=== PATIENT | female | born 1950 ===

== ENCOUNTER → 2024-03-21 | Outpatient (CLI) | payer OTHER ==
[~2024-03-21] MED LIST: AMOCLA875 PO; MIRALAX17 GM PO; VISBIOME 112.51 EACH PO
[2024-03-21 18:47] LABS: BASOPHILS ABSOLUTE AUTO 0.04 K/mm3 (0.00-0.23); BASOPHILS PERCENT AUTO 0 % (0-2); EOSINOPHILS ABSOLUTE AUTO 0.16 K/mm3 (0.00-0.68); EOSINOPHILS PERCENT AUTO 1 % (0-6); Hematocrit 39.6 % (33.0-51.0); Hemoglobin 14.1 g/dL (11.5-16.0); IMMATURE GRAN ABSOLUTE AUTO 0.06 K/mm3 (0.00-0.10); IMMATURE GRAN PERCENT AUTO 0 % (0-1); LYMPHOCYTES ABSOLUTE AUTO 2.23 K/mm3 (0.84-5.20); LYMPHOCYTES PERCENT AUTO 16 % (21-46); MONOCYTES ABSOLUTE AUTO 1.14 K/mm3 (0.16-1.47); MONOCYTES PERCENT AUTO 8 % (4-13); Mean Corpuscular HGB Conc 35.6 g/dL (31.5-36.5); Mean Corpuscular Volume 82 fL (80-100); Mean Platelet Volume 8.6 fL (9.1-12.4); NEUTROPHILS PERCENT AUTO 75 % (41-73); Platelet Count 538 K/mm3 (150-400); RDW Coefficient Variation 11.9 % (11.7-14.2); RDW Standard Deviation 35.2 fL (35.1-46.3); Red Blood Cell Count 4.86 M/mm3 (3.80-5.20); White Blood Cell Count 14.33 K/mm3 (4.00-11.30)
[2024-03-21 19:05] LABS: Albumin, Blood 3.6 g/dL (3.4-5.0); Albumin/Globulin Ratio 0.7 (0.8-1.8); Bilirubin, Total 0.4 mg/dL (0.1-1.0); Bun/Creatinine Ratio 20.8 (12.0-20.0); Creatinine, Blood 3.32 mg/dL (0.40-1.00); Globulin, Blood 5.1 g/dL (2.2-4.0); Potassium, Blood 2.8 mmol/L (3.5-5.5); Total Protein, Blood 8.7 g/dL (6.4-8.2)
[2024-03-22 08:30] LABS: Adenovirus F 40/41 Not Detected (NOT DETECT); Astrovirus Not Detected (NOT DETECT); Campylobacter Sp Not Detected (NOT DETECT); Cryptosporidium Not Detected (NOT DETECT); Cyclospora Cayetanensis Not Detected (NOT DETECT); E. Coli O157 Not Detected (NOT DETECT); Entamoeba Histolytica Not Detected (NOT DETECT); Enteroaggregative E. coli-EAEC Not Detected (NOT DETECT); Enteropathogenic E. coli-EPEC Not Detected (NOT DETECT); Enterotoxigenic E. coli-ETEC Not Detected (NOT DETECT); Giardia Lamblia Not Detected (NOT DETECT); Norovirus GI/GII Detected (NOT DETECT); Plesiomonas Shigelloides Not Detected (NOT DETECT); Rotavirus A Not Detected (NOT DETECT); Salmonella Sp Not Detected (NOT DETECT); Sapovirus Not Detected (NOT DETECT); Shiga Toxin-prod E. coli-STEC Not Detected (NOT DETECT); Shigella/Enteroin E. coli-EIEC Not Detected (NOT DETECT); Vibrio Cholerae Not Detected (NOT DETECT); Vibrio Sp Not Detected (NOT DETECT); Yersinia Enterocolitica Not Detected (NOT DETECT)
== END ==
LOC: LAB 18:36 → LAB SHORT 18:36
DX: R19.7 Diarrhea, unspecified (principal); R10.9 Unspecified abdominal pain
CPT/HCPCS: 80053; 85025; 87507

== ENCOUNTER 2024-04-03 06:31 | Day surgery (SDC) | payer OTHER ==
[~2024-04-03] VITALS: Ht 162.6 cm; Wt 55.9 kg
[2024-04-03] MEDS ORDERED: propofoL 20 ML IV ONE (07:19)
[2024-04-03] MEDS ORDERED: FentaNYL Citrate 50 MCG/ML 2 ML Injection ONE (07:19)
[2024-04-03] MEDS ORDERED: Lidocaine HCl/Pf 1% 5 ML VIAL ONE (07:22)
[2024-04-03] MEDS ORDERED: Lactated Ringer's 1,000 ML IV ONE (07:32)
[2024-04-03] MEDS ORDERED: CeFAZolin Sodium 2,000 MG VIAL ONE (07:34)
[2024-04-03] MEDS ORDERED: Dexamethasone Sod Phos 10 MG/ML 1ML VIAL ONE (07:52)
[2024-04-03] MEDS ORDERED: Ondansetron HCl 2 MG / ML 2ML Vial ONE (07:52)
[2024-04-03] MEDS ORDERED: Phenylephrine HCl 100 MCG/ML-NS 10MLSYR (1MG/10ML) ONE (08:07)
[2024-04-03] MEDS ORDERED: Bupivacaine 0.5% HCl 5 MG/ML 30MLVIAL XX ONE (08:14)
--- NOTE | 2024-04-03 08:49 | NUR ---
04/03/24 0849 Milka Green PT ROUSES EASILY TO VOICE, DENIES PAIN/NAUSEA. VSS, ON RA. DRESSINGS X2 TO R UPPER CHEST C/D/I. NO VISIBLE SIGNS OF DISTRESS NOTED.
--- NOTE | 2024-04-03 09:00 | NUR ---
04/03/24 0900 Milka Green PT TRANSFERRED TO SDU. PT STILL DROWSY, BUT A&O. VSS, ON RA. PT CONTINUES TO DENY PAIN/NAUSEA. RADIOLOGY NOTIFIED. NO VISIBLE SIGNS OF DISTRESS NOTED.
[2024-04-03 09:03] VITALS: BP 99/56
== END 2024-04-03 09:42 | disposition home or self-care (01) ==
LOC: ORSCSDS 06:31
PROVIDERS: Surgery
PROC: 0JH60WZ Insertion of Totally Implantable Vascular Access Device into Chest Subcutaneous Tissue and Fascia, Open Approach (ICD-10-PCS; principal; 2024-04-03 08:00)
DX: C20 Malignant neoplasm of rectum (principal)
CPT/HCPCS: 77001; C1788; J0690; J1100; J1642; J2003; J2371; J2405; J2704; J3010; J7120

== ENCOUNTER 2024-04-12 17:22 | Emergency (ER) | payer OTHER ==
[~2024-04-12] VITALS: Ht 162.6 cm; Wt 52.2 kg
[2024-04-12 17:31] VITALS: BP 97/58
[2024-04-12] MEDS ORDERED: Lactated Ringer's 1,000 ML IV ONE (17:40)
[2024-04-12 18:31] LABS: Base Excess Venous 1.1 mmol/L; Bicarbonate Venous 25.2 mmol/L (24.0-30.0); pH Blood Venous 7.42 (7.34-7.37)
[2024-04-12 20:33] LABS: International Normalized Ratio 0.95; Prothrombin Time Results 10.2 Sec (9.7-11.5)
[2024-04-12 20:58] LABS: Source, Urine Clean Catch
[2024-04-12 21:01] LABS: Bilirubin, Urine Neg (Neg); Blood, Urine Neg (Neg); Glucose Qualitative, Urine Neg (Neg); Ketones, Urine Neg (Neg); Leukocyte Esterase, Urine Neg (Neg); Nitrite, Urine Neg (Neg); Protein, Urine Neg (Neg); Specific Gravity, Urine 1.015 (1.003-1.022); Urobilinogen, Urine NORM (Normal)
[2024-04-12 21:06] LABS: Appearance, Urine Clear (Clear); Color, Urine Pale Yellow (P-Yellow)
== END 2024-04-12 22:47 | disposition home or self-care (01) ==
LOC: ER 17:22
PROVIDERS: Student in an Organized Health Care Education/Training Program
DX: G93.40 Encephalopathy, unspecified (principal); Z91.011 Allergy to milk products; Z91.018 Allergy to other foods; Z79.899 Other long term (current) drug therapy; R93.3 Abnormal findings on diagnostic imaging of other parts of digestive tract; R50.9 Fever, unspecified; R10.9 Unspecified abdominal pain; R82.81 Pyuria
CPT/HCPCS: 36415; 70450; 71046; 74019; 80053; 81003; 82803; 83605; 83690; 83735; 84484; 85025; 85610; 85730; 87040; 87086; 93005; 93010; 96360-59; 99285-25; J7120

== ENCOUNTER → 2024-04-12 | Outpatient (CLI) | payer OTHER ==
[2024-04-12 14:51] LABS: BASOPHILS ABSOLUTE AUTO 0.04 K/mm3 (0.00-0.23); BASOPHILS PERCENT AUTO 0 % (0-2); EOSINOPHILS ABSOLUTE AUTO 0.14 K/mm3 (0.00-0.68); EOSINOPHILS PERCENT AUTO 1 % (0-6); Hemoglobin 11.4 g/dL (11.5-16.0); IMMATURE GRAN ABSOLUTE AUTO 0.11 K/mm3 (0.00-0.10); IMMATURE GRAN PERCENT AUTO 1 % (0-1); LYMPHOCYTES ABSOLUTE AUTO 1.73 K/mm3 (0.84-5.20); LYMPHOCYTES PERCENT AUTO 12 % (21-46); MONOCYTES ABSOLUTE AUTO 1.28 K/mm3 (0.16-1.47); MONOCYTES PERCENT AUTO 9 % (4-13); Mean Corpuscular HGB 28.9 pg (26.0-34.0); Mean Corpuscular HGB Conc 33.5 g/dL (31.5-36.5); Mean Corpuscular Volume 86 fL (80-100); Mean Platelet Volume 8.7 fL (9.1-12.4); NEUTROPHILS ABSOLUTE AUTO 10.92 K/mm3 (1.96-9.15); NEUTROPHILS PERCENT AUTO 77 % (41-73); Platelet Count 405 K/mm3 (150-400); RDW Coefficient Variation 13.1 % (11.7-14.2); RDW Standard Deviation 40.7 fL (35.1-46.3); Red Blood Cell Count 3.94 M/mm3 (3.80-5.20); White Blood Cell Count 14.22 K/mm3 (4.00-11.30)
[2024-04-12 15:02] LABS: Albumin, Blood 2.6 g/dL (3.4-5.0); Albumin/Globulin Ratio 0.5 (0.8-1.8); Bilirubin, Total 0.4 mg/dL (0.1-1.0); Bun/Creatinine Ratio 37.8 (12.0-20.0); Calcium, Blood 9.4 mg/dL (8.5-10.1); Creatinine, Blood 0.9 mg/dL (0.40-1.00); Globulin, Blood 5.1 g/dL (2.2-4.0); Magnesium, Blood 2.2 mg/dL (1.6-2.4); Potassium, Blood 3.7 mmol/L (3.5-5.5); Total Protein, Blood 7.7 g/dL (6.4-8.2)
== END | disposition home or self-care (01) ==
LOC: LAB SHORT 14:46 → LAB 14:46
PROVIDERS: Emergency Medicine
DX: R50.9 Fever, unspecified (principal); R10.9 Unspecified abdominal pain; R82.81 Pyuria
CPT/HCPCS: 80053; 83690; 83735; 85025; 87086

== ENCOUNTER 2024-04-16 20:41 | Inpatient (IN) | payer OTHER ==
[~2024-04-16] VITALS: Ht 162.6 cm; Wt 50.5 kg
[2024-04-16] MEDS ORDERED: HYDROmorphone HCl/Pf 1MG SYR IV ONE (21:25)
[2024-04-16] MEDS ORDERED: NS 1,000 ML IV SCH (21:25)
[2024-04-16 22:16] LABS: BASOPHILS ABSOLUTE AUTO 0.04 K/mm3 (0.00-0.23); BASOPHILS PERCENT AUTO 0 % (0-2); EOSINOPHILS ABSOLUTE AUTO 0.09 K/mm3 (0.00-0.68); EOSINOPHILS PERCENT AUTO 1 % (0-6); Hematocrit 31.2 % (33.0-51.0); Hemoglobin 10.9 g/dL (11.5-16.0); IMMATURE GRAN ABSOLUTE AUTO 0.08 K/mm3 (0.00-0.10); IMMATURE GRAN PERCENT AUTO 1 % (0-1); LYMPHOCYTES ABSOLUTE AUTO 1.27 K/mm3 (0.84-5.20); LYMPHOCYTES PERCENT AUTO 8 % (21-46); MONOCYTES ABSOLUTE AUTO 0.91 K/mm3 (0.16-1.47); MONOCYTES PERCENT AUTO 6 % (4-13); Mean Corpuscular HGB 29.5 pg (26.0-34.0); Mean Corpuscular HGB Conc 34.9 g/dL (31.5-36.5); Mean Corpuscular Volume 85 fL (80-100); Mean Platelet Volume 8.5 fL (9.1-12.4); NEUTROPHILS ABSOLUTE AUTO 12.76 K/mm3 (1.96-9.15); NEUTROPHILS PERCENT AUTO 84 % (41-73); Platelet Count 480 K/mm3 (150-400); RDW Coefficient Variation 12.7 % (11.7-14.2); RDW Standard Deviation 38.5 fL (35.1-46.3); Red Blood Cell Count 3.69 M/mm3 (3.80-5.20); White Blood Cell Count 15.15 K/mm3 (4.00-11.30)
[2024-04-16 22:43] LABS: Albumin, Blood 2.7 g/dL (3.4-5.0); Albumin/Globulin Ratio 0.5 (0.8-1.8); Bilirubin, Total 0.5 mg/dL (0.1-1.0); Bun/Creatinine Ratio 45.2 (12.0-20.0); Calcium, Blood 9.1 mg/dL (8.5-10.1); Creatinine, Blood 0.8 mg/dL (0.40-1.00); Potassium, Blood 2.9 mmol/L (3.5-5.5); Total Protein, Blood 7.7 g/dL (6.4-8.2)
[2024-04-16] MEDS ORDERED: Ondansetron HCl 2 MG / ML 2ML Vial IV PRN (22:45)
[2024-04-16] MEDS ORDERED: FLU VACC TS2024-25(6MOS UP)/PF 45 MCG/0.5 ML SYRINGE IM ONE (22:45)
[2024-04-16] MEDS ORDERED: FentaNYL Citrate 50 MCG/ML 2 ML Injection IV PRN (22:45)
[2024-04-16] MEDS ORDERED: NS 1,000 ML IV ONE (22:45)
[2024-04-17 00:59] VITALS: BP 124/66
[2024-04-17] MEDS ORDERED: HYDROmorphone HCl/Pf 1MG SYR IV PRN ×2 (01:40→13:00)
[2024-04-17 04:25] VITALS: BP 115/61
[2024-04-17] MEDS ORDERED: Potassium Chloride 20 MEQ in NS 90 ML IV SCH (04:30)
[2024-04-17 04:35] LABS: BASOPHILS ABSOLUTE AUTO 0.04 K/mm3 (0.00-0.23); BASOPHILS PERCENT AUTO 0 % (0-2); EOSINOPHILS ABSOLUTE AUTO 0.09 K/mm3 (0.00-0.68); EOSINOPHILS PERCENT AUTO 1 % (0-6); Hematocrit 32.2 % (33.0-51.0); Hemoglobin 11.4 g/dL (11.5-16.0); IMMATURE GRAN ABSOLUTE AUTO 0.13 K/mm3 (0.00-0.10); IMMATURE GRAN PERCENT AUTO 1 % (0-1); LYMPHOCYTES ABSOLUTE AUTO 1.76 K/mm3 (0.84-5.20); LYMPHOCYTES PERCENT AUTO 14 % (21-46); MONOCYTES ABSOLUTE AUTO 1.14 K/mm3 (0.16-1.47); MONOCYTES PERCENT AUTO 9 % (4-13); Mean Corpuscular HGB 29.5 pg (26.0-34.0); Mean Corpuscular HGB Conc 35.4 g/dL (31.5-36.5); Mean Corpuscular Volume 83 fL (80-100); NEUTROPHILS ABSOLUTE AUTO 9.37 K/mm3 (1.96-9.15); NEUTROPHILS PERCENT AUTO 75 % (41-73); RDW Coefficient Variation 12.8 % (11.7-14.2); RDW Standard Deviation 38.7 fL (35.1-46.3); Red Blood Cell Count 3.87 M/mm3 (3.80-5.20); White Blood Cell Count 12.53 K/mm3 (4.00-11.30)
[2024-04-17 04:59] LABS: Albumin, Blood 2.6 g/dL (3.4-5.0); Albumin/Globulin Ratio 0.6 (0.8-1.8); Bilirubin, Total 0.4 mg/dL (0.1-1.0); Bun/Creatinine Ratio 45.4 (12.0-20.0); Calcium, Blood 8.6 mg/dL (8.5-10.1); Creatinine, Blood 0.66 mg/dL (0.40-1.00); Globulin, Blood 4.6 g/dL (2.2-4.0); Magnesium, Blood 2.7 mg/dL (1.6-2.4); Potassium, Blood 2.5 mmol/L (3.5-5.5); Total Protein, Blood 7.2 g/dL (6.4-8.2)
--- NOTE | 2024-04-17 05:10 | NUR ---
SHIFT SUMMARY BENOIT WAS ALERT AND FULLY ORIENTED WHEN SHE ARRIVED FROM THE ED AT AROUND 0100. PT WITH L FEMUR FX. PT WAS VERY PAINFUL, DR GONZALEZ CONTACTED FOR PAIN MED CHANGES. PT IS INCONTINENT OF BOWEL D/T COLON CANCER. PT HAD COLONOSCOPY DAY PRIOR TO ADMIT. PEDAL PULSES INTACT. NO ACUTE EVENTS OR NOTED CHANGES AFTER ADMIT. ADMIT COMPLETED.
[2024-04-17 05:11] LABS: Mean Platelet Volume 8.8 fL (9.1-12.4); Platelet Count 373 K/mm3 (150-400)
[2024-04-17] MEDS ORDERED: HYDROmorphone HCl/Pf 1MG SYR IV ONE (05:40)
[2024-04-17] MEDS ORDERED: Potassium Chloride 20 MEQ TabCR PO ONE (07:00)
[2024-04-17 07:28] VITALS: BP 107/66
[2024-04-17] MEDS ORDERED: Potassium Chloride 20 MEQ/15 ML UDC PO ONE (08:00)
[2024-04-17 14:44] LABS: Albumin, Blood 2.6 g/dL (3.4-5.0); Albumin/Globulin Ratio 0.5 (0.8-1.8); Bilirubin, Total 0.5 mg/dL (0.1-1.0); Creatinine, Blood 0.71 mg/dL (0.40-1.00); Globulin, Blood 4.9 g/dL (2.2-4.0); Potassium, Blood 3.4 mmol/L (3.5-5.5); Total Protein, Blood 7.5 g/dL (6.4-8.2)
[2024-04-17] MEDS ORDERED: OxyCODONE HCL 5 MG TAB PO PRN (15:35)
[2024-04-17 15:42] VITALS: BP 111/61
[2024-04-17] MEDS ORDERED: Menthol/Zinc Oxide Ointment 1 APPLIC/113 GM Tube TOP PRN (17:55)
[2024-04-17] MEDS ORDERED: Potassium Chloride 20 MEQ TabCR PO SCH (18:00)
--- NOTE | 2024-04-17 18:45 | NUR ---
SHIFT SUMMARY PT IS A/O X4, 2 ASST TO REPOSITION IN BED. L LEG EXTERNALLY ROTATED, CAP REFILL IN L TOES 2 SECS, PT ABLE TO WIGGLE TOES BILATERALLY. PT MEDICATED FOR PAIN PER EMAR, O2 SATS DROPPED FROM >92% TO 82% ON RA AFTER RECIEVING PAIN MEDICATION THIS MORNING. 2LNC PLACED AND O2 SATS RETURNED TO >92%. PT AROUSABLE BUT DROWSY. PT REMAINS ON 2L NC THROUGHOUT SHIFT TO MAINTAIN 02 SATS >92% W/ NARCOTIC USE. PT HAS MUSCLE CRAMPS AT TIMES THAT ARE RELIEVED W/ REPOSITIONING. PT HAS BEEN PLEASANT AND IN GOOD SPIRITS MOST OF SHIFT, CURRENTLY IS RESTING IN ROOM W/ SPOUSE AT BEDSIDE AND REPORTS PAIN IS TOLERABLE. ROSENBERG IN PLACE DRAINING YELLOW URINE DUE TO RETENTION PER DR. GOETZ. PT IS TOLERATING REG DIET AND PO FLUIDS. DRY ATTENDS IN PLACE AT THIS TIME, PT CHANGED AND REPOSITIONED THROUGHOUT SHIFT. REFUSING PAS. REPORT TO NOC NURSE, CALL LIGHT IN REACH.
[2024-04-17 20:05] VITALS: BP 118/63
[2024-04-18] VITALS (15 sets, daily range): BP systolic 115–137; BP diastolic 60–75
[2024-04-18] MEDS ORDERED: NS 1,000 ML IV SCH (01:25)
[2024-04-18 04:45] LABS: BASOPHILS ABSOLUTE AUTO 0.04 K/mm3 (0.00-0.23); BASOPHILS PERCENT AUTO 0 % (0-2); EOSINOPHILS ABSOLUTE AUTO 0.13 K/mm3 (0.00-0.68); EOSINOPHILS PERCENT AUTO 1 % (0-6); Hemoglobin 10.4 g/dL (11.5-16.0); IMMATURE GRAN ABSOLUTE AUTO 0.09 K/mm3 (0.00-0.10); IMMATURE GRAN PERCENT AUTO 1 % (0-1); LYMPHOCYTES ABSOLUTE AUTO 1.27 K/mm3 (0.84-5.20); LYMPHOCYTES PERCENT AUTO 10 % (21-46); MONOCYTES ABSOLUTE AUTO 0.84 K/mm3 (0.16-1.47); MONOCYTES PERCENT AUTO 7 % (4-13); Mean Corpuscular HGB 29.3 pg (26.0-34.0); Mean Corpuscular HGB Conc 33.5 g/dL (31.5-36.5); Mean Corpuscular Volume 87 fL (80-100); Mean Platelet Volume 8.7 fL (9.1-12.4); NEUTROPHILS PERCENT AUTO 82 % (41-73); Platelet Count 459 K/mm3 (150-400); RDW Coefficient Variation 13.1 % (11.7-14.2); RDW Standard Deviation 41.7 fL (35.1-46.3); Red Blood Cell Count 3.55 M/mm3 (3.80-5.20); White Blood Cell Count 12.77 K/mm3 (4.00-11.30)
[2024-04-18 05:06] LABS: Albumin, Blood 2.6 g/dL (3.4-5.0); Albumin/Globulin Ratio 0.6 (0.8-1.8); Bilirubin, Total 0.6 mg/dL (0.1-1.0); Bun/Creatinine Ratio 33.2 (12.0-20.0); Calcium, Blood 9.2 mg/dL (8.5-10.1); Creatinine, Blood 0.6 mg/dL (0.40-1.00); Globulin, Blood 4.7 g/dL (2.2-4.0); Potassium, Blood 3.6 mmol/L (3.5-5.5); Total Protein, Blood 7.3 g/dL (6.4-8.2)
--- NOTE | 2024-04-18 06:55 | NUR ---
PT ALERT AND ORIENTED. ANSWERS QUESTIONS APPROP. COOPERATIVE WITH CARE. ROSENBERG WITH LOW OUTPUT OF DARK YELLOW URINE. CALLED HOSPITALIST FOR ORDER OF IVF. NS AT 75ML/HR STARTED. SCHEDULED FOR SURGERY IN AM. NPO AFTER MN. SLX2 PATENT AND FLUSHED. LT AC SL INFILTRATED AT O332. IVF INFUSING IN SL RT AC, PT PULLED IT OUT. NEW IV 20G PLACED RT WRIST IVF INFUSING. MEDICATING PATIENT FOR PAIN WITH DILAUDID 0.5MG IVP. PATIENT NEEDED ANOTHER DOSE 1.5 HRS. ABOUT MN PATIENT HAD BEEN CRYING AND MOANING ABOUT PAIN IN HER LT FOOT/ANKLE. RUBBED FEET WITH LOTION TO SEE IF THET HELPED. THEN PLACED ICE PACK TO LLE. CALLED HOSP AND HE ORDERED A PORTABLE X-RAY OF LLE FROM THE KNEE DOWN. 0227 MEDICATED PT WITH DIILAUDIOD 1MG IVP. DAYSHIFT RN SAID PATIENT SATS DROPPED WITH IMG. ABOUT 8-10 POST IVP PATIENT STOPPED CRYING /MOANING AND OPENED HER EYES. XRAY DONE IN ROOM. PT SLEEPING POST XRAY. RESPIRATIONS EVEN AND UNLABORED. NPO PAST MN FOR LAST TWO NIGHTS. REPORT GIVEN TO ONCOMING RN THAT ASSUMED CARE OF MARILYN.
[2024-04-18] MEDS ORDERED: Potassium Chl 20MEQ/Water100ML 100 ML IV ONE (11:00)
[2024-04-18] MEDS ORDERED: Lactated Ringer's 1,000 ML IV SCH (12:20)
[2024-04-18] MEDS ORDERED: Bupivacaine 0.5% W/EPI 1:200000 SDV 30 ML Vial ONE (12:23)
[2024-04-18] MEDS ORDERED: CeFAZolin Sodium 2,000 MG in NS 100 ML IV SCH ×2 (12:40→21:00)
[2024-04-18] MEDS ORDERED: Tranexamic Acid 100 ML IV SCH (12:44)
[2024-04-18] MEDS ORDERED: propofoL 20 ML IV ONE (13:03)
[2024-04-18] MEDS ORDERED: FentaNYL Citrate 50 MCG/ML 2 ML Injection ONE ×2 (13:03→14:26)
[2024-04-18] MEDS ORDERED: FentaNYL Citrate 50 MCG/ML 2 ML Injection IV PRN ×3 (13:30→13:35)
[2024-04-18] MEDS ORDERED: Ondansetron HCl 2 MG / ML 2ML Vial IV PRN (13:35)
[2024-04-18] MEDS ORDERED: Ondansetron HCl 2 MG / ML 2ML Vial ONE (13:37)
[2024-04-18] MEDS ORDERED: Lidocaine HCl 2% 20 ML MDV ONE (13:37)
[2024-04-18] MEDS ORDERED: Dexamethasone Sod Phos 10 MG/ML 1ML VIAL ONE (13:37)
[2024-04-18] MEDS ORDERED: HYDROmorphone HCl 0.5 MG/0.5 ML SYR IV PRN (13:40)
--- NOTE | 2024-04-18 16:31 | NUR ---
POST OP: REPORT RECEIVED FROM SPIRAL RUNNER. PT TO UNIT AT ABOUT 1445. PT ORIENTED, DROWSY AND AWAKENS TO VOICE. VSS. ROSENBERG DRAINING. SURGICAL SITES WNL. SENSATION INTACT TO L LEG. PT REPORTS PAIN4/10, MEDICATED PER EMAR. TELE VERIFIED. SR 97. PT GIVEN CALL LIGHT AND INSTRUCTED TO CALL STAFF IF NEEDS OOB. PT VERBALIZED UNDERSTANDING. PT SPOUSE AT BEDSIDE.
--- NOTE | 2024-04-18 18:00 | NUR ---
SUMMARY: NO ACUTE CHANGE SINCE POST OP. PT HAS HAD MINIMAL PAIN, SURGICAL SITES WNL. PT ABLE TO REPOSTION EASIER IN BED, SAT UP FOR DINNER. VSS, TELE WNL. PT USING CALL LIGHT. PLAN TO AMBULATE TOLERATED AFTER DINNER.
[2024-04-18] MEDS ORDERED: Multivitamins 1 Tab PO SCH (18:20)
[2024-04-18] MEDS ORDERED: Thiamine HCl 100 MG Tab PO SCH (18:20)
[2024-04-18] MEDS ORDERED: Magnesium Hydroxide Conc 10 ML UDC PO PRN (20:30)
[2024-04-18] MEDS ORDERED: Bisacodyl 10 MG Supp PR PRN (20:35)
[2024-04-18] MEDS ORDERED: Sennosides 8.6 MG Tab PO SCH (21:00)
[2024-04-18] MEDS ORDERED: Docusate Sodium 100 MG Cap PO SCH (21:00)
[2024-04-19] VITALS (7 sets, daily range): BP systolic 102–129; BP diastolic 63–71
[2024-04-19 05:13] LABS: BASOPHILS ABSOLUTE AUTO 0.02 K/mm3 (0.00-0.23); BASOPHILS PERCENT AUTO 0 % (0-2); EOSINOPHILS ABSOLUTE AUTO 0.01 K/mm3 (0.00-0.68); EOSINOPHILS PERCENT AUTO 0 % (0-6); Hemoglobin 9.1 g/dL (11.5-16.0); IMMATURE GRAN PERCENT AUTO 1 % (0-1); LYMPHOCYTES ABSOLUTE AUTO 0.99 K/mm3 (0.84-5.20); LYMPHOCYTES PERCENT AUTO 8 % (21-46); MONOCYTES ABSOLUTE AUTO 0.42 K/mm3 (0.16-1.47); MONOCYTES PERCENT AUTO 3 % (4-13); Mean Corpuscular HGB 29.1 pg (26.0-34.0); Mean Corpuscular HGB Conc 32.5 g/dL (31.5-36.5); Mean Corpuscular Volume 90 fL (80-100); Mean Platelet Volume 8.7 fL (9.1-12.4); NEUTROPHILS ABSOLUTE AUTO 11.13 K/mm3 (1.96-9.15); NEUTROPHILS PERCENT AUTO 88 % (41-73); Platelet Count 399 K/mm3 (150-400); RDW Coefficient Variation 12.9 % (11.7-14.2); RDW Standard Deviation 41.9 fL (35.1-46.3); Red Blood Cell Count 3.13 M/mm3 (3.80-5.20); White Blood Cell Count 12.67 K/mm3 (4.00-11.30)
[2024-04-19 05:41] LABS: Albumin, Blood 2.2 g/dL (3.4-5.0); Albumin/Globulin Ratio 0.5 (0.8-1.8); Bilirubin, Total 0.3 mg/dL (0.1-1.0); Bun/Creatinine Ratio 25.9 (12.0-20.0); Calcium, Blood 8.8 mg/dL (8.5-10.1); Creatinine, Blood 0.58 mg/dL (0.40-1.00); Globulin, Blood 4.3 g/dL (2.2-4.0); Magnesium, Blood 2.5 mg/dL (1.6-2.4); Phosphorus, Blood 3.7 mg/dL (2.5-4.9); Potassium, Blood 3.1 mmol/L (3.5-5.5); Total Protein, Blood 6.5 g/dL (6.4-8.2)
--- NOTE | 2024-04-19 06:42 | NUR ---
SHIFT SUMMARY POD 1 LEFT GAMMA HIP. DRESSING TO LEFT HIP CDI. ICE APPLIED CHAPITO. PAIN MANAGED PER EMAR. IVF AND ABD INFUSED PER ORDERS. ENCOURAGED PO INTAKE, PT DENIES N/V. APPEARS TO HAVE SLEPT T/O MOST OF SHIFT. CLEAR LIQUID STOOLS CONT, ATTENDS CHANGED AND REPOSITIONING PRN. A/OX3-4 WITH VSS. ABLE TO MAKE NEEDS KNOWN. ROSENBERG PATENT TO GRAVITY DRAIN PER ORDERS. AWAITING POST-OP OOB, PLAN TO WORK WITH THERAPY TODAY. WILL GIVE REPORT TO ONCOMING RN
--- NOTE | 2024-04-19 16:42 | NUR ---
SHIFT SUMMARY THIS RN ASSUMED CARE AT APPROX 0715. PATIENT ALERT AND ORIENTED X3-4. CAN BE A BIT FORGETFUL - EASILY REDIRECTABLE. VSS. SBP 100s-120s. MAP >65. DENIES CHEST PAIN, PRESSURE. TELEMETRY SHOWING SINUS 80s-90s PER FINANCIAL ACCOUNTING MANAGER - NO EVENTS REPORTED. TITRATED FROM 2L VIA NC TO ROOM AIR, SATs >90%. RR SHALLOW - ENCOURAGING TO COUGH AND DEEP BREATH. POD 1 L HIP NAILING - X3 GAUZE AND TEGADERM SITES C/D/I. MANAGING PAIN PER EMAR. AMBULATING WITH 1-2P ASSIST FWW GB. PHYSICAL THERAPY EVAL COMPLETED THIS MORNING - LIMITED SENSATION AND MOBILITY TO L ANKLE NOTED BY THERAPY. MD MCFARLANE AWARE. UP IN CHAIR MAJORITY OF THE DAY. ROSENBERG CATHETER REMOVED - VOIDING SINCE REMOVAL. EPISODES OF CLEAR JELLY LIKE STOOL - INCONTINENT AT TIMES. PATIENT STATES BASELINE SINCE SCOPE 04/15/24. TOLERATING PO INTAKE. NO BM. CALL LIGHT IN REACH.
[2024-04-20 05:48] LABS: BASOPHILS ABSOLUTE AUTO 0.04 K/mm3 (0.00-0.23); BASOPHILS PERCENT AUTO 0 % (0-2); EOSINOPHILS ABSOLUTE AUTO 0.13 K/mm3 (0.00-0.68); EOSINOPHILS PERCENT AUTO 1 % (0-6); Hematocrit 27.3 % (33.0-51.0); Hemoglobin 8.7 g/dL (11.5-16.0); IMMATURE GRAN ABSOLUTE AUTO 0.08 K/mm3 (0.00-0.10); IMMATURE GRAN PERCENT AUTO 1 % (0-1); LYMPHOCYTES ABSOLUTE AUTO 2.13 K/mm3 (0.84-5.20); LYMPHOCYTES PERCENT AUTO 22 % (21-46); MONOCYTES ABSOLUTE AUTO 0.76 K/mm3 (0.16-1.47); MONOCYTES PERCENT AUTO 8 % (4-13); Mean Corpuscular HGB 28.6 pg (26.0-34.0); Mean Corpuscular HGB Conc 31.9 g/dL (31.5-36.5); Mean Corpuscular Volume 90 fL (80-100); Mean Platelet Volume 8.5 fL (9.1-12.4); NEUTROPHILS ABSOLUTE AUTO 6.39 K/mm3 (1.96-9.15); NEUTROPHILS PERCENT AUTO 67 % (41-73); Platelet Count 377 K/mm3 (150-400); RDW Coefficient Variation 13.1 % (11.7-14.2); RDW Standard Deviation 43.1 fL (35.1-46.3); Red Blood Cell Count 3.04 M/mm3 (3.80-5.20); White Blood Cell Count 9.53 K/mm3 (4.00-11.30)
[2024-04-20 06:03] VITALS: BP 134/76
[2024-04-20 06:20] LABS: Albumin, Blood 2.1 g/dL (3.4-5.0); Albumin/Globulin Ratio 0.5 (0.8-1.8); Bilirubin, Total 0.4 mg/dL (0.1-1.0); Bun/Creatinine Ratio 40.2 (12.0-20.0); Calcium, Blood 8.8 mg/dL (8.5-10.1); Creatinine, Blood 0.65 mg/dL (0.40-1.00); Globulin, Blood 4.1 g/dL (2.2-4.0); Magnesium, Blood 2.2 mg/dL (1.6-2.4); Phosphorus, Blood 3.2 mg/dL (2.5-4.9); Potassium, Blood 3.2 mmol/L (3.5-5.5); Total Protein, Blood 6.2 g/dL (6.4-8.2)
[2024-04-20 07:19] VITALS: BP 100/55
--- NOTE | 2024-04-20 07:31 | NUR ---
NURSES NOTES; PATIENT SLEPT IN LONG INTERVAL MEDICATED FOR PAIN 4 TIMES. TELE SR 79 O2/NC/ 2L ALL NIGHT, UP TO BSC SEVERAL TIMES.
[2024-04-20] MEDS ORDERED: Polyethylene Glycol 3350 17 gm PO SCH (09:00)
--- NOTE | 2024-04-20 10:53 | NUR ---
PAIN PATIENT REPORTING 5/10 PAIN IN L HIP. Q6H 5MG PO OXYCODONE ADMINISTERED PER EMAR THIS MORNING. MD EARL CONTACTED - RECEIVED ORDER FOR 650MG PO TYLENOL Q6H PRN.
[2024-04-20] MEDS ORDERED: Acetaminophen 325 MG TABLET PO PRN (10:55)
--- NOTE | 2024-04-20 11:04 | NUR ---
INITIAL PC VISIT: MET WITH PT IN HER ROOM, SHE IS SITTING UP IN CHAIR, AWAKE AND TALKING TO SOMEONE ON HER CELL PHONE. BENOIT HANGS UP WITH HER FRIEND AND IS ABLE TO PARTICIPATE IN MEANINGFUL CONVERSATION. WE DISCUSS CURRENT SITUATION WITH HIP FX/REPAIR. SHE STATES PAIN IS MANAGED AT THIS TIME. SHE IS CURRENTLY HAVING NO PAIN AND FEELS LIKE SHE IS PROGRESSING WELL. SHE REPORTS SHE WAS INDEPENDENT AND AMBULATORY PRIOR TO INCIDENT BUT IT WAS NOT THE FIRST OF RECENT FALLS. SHE REPORTS SINCE SHE WAS DIAGNOSED WITH A MASS SHE HAS HAD SUDDEN ONSET OF WEAKNESS WHICH IS UNPREDICTABLE AND CAUSES HER TO FALL IF SHE IS UP. PT HAS HAD COLONOSCOPY FOR DIAGNOSTIC PURPOSES AND HAS FOLLOW-UP APPT SCHEDULED. PT INTENDS TO HAVE WHATEVER TREATMENT IS NECESSARY TO TREAT HER CANCER. PT DENIES ANY NEED FOR FURTHER INFORMATION.
[2024-04-20 11:34] VITALS: BP 113/79
[2024-04-20 14:55] VITALS: BP 123/71
--- NOTE | 2024-04-20 16:12 | NUR ---
SHIFT SUMMARY THIS RN ASSUMED CARE AT APPROX 0715. PATIENT ALERT AND ORIENTED X4. COMMUNICATES NEEDS EFFECTIVELY. VSS. TELEMETRY SHOWING SINUS/SINUS TACH 70s-100s PER ENGINEERING DRAWINGS CHECKER - NO EVENTS REPORTED. SBP 110s-120s. MAP >65. DENIES CHEST PAIN, PRESSURE. ON ROOM AIR WHILE AWAKE AND ON 2L VIA NC WITH SLEEP. CONTINOUS PULSE OX IN PLACE. POD 2 L HIP NAILING. MANAGING PAIN PER EMAR. AMBULATING WITH 1P ASSIST FWW GB TO CHAIR OR RESTROOM. X3 GAUZE AND TEGADERM SITES C/D/I. BEDBATH COMPLETED TODAY. TOLERATING PO INTAKE. VOIDING. EPISODES OF INCONTINENT CLEAR JELLY LIKE STOOL. CALL LIGHT IN REACH.
[2024-04-20 19:15] VITALS: BP 100/61
[2024-04-20 23:09] VITALS: BP 132/69
[2024-04-21 04:19] VITALS: BP 127/76
--- NOTE | 2024-04-21 04:29 | NUR ---
SHIFT SUMMARY BENOIT WAS ALERT AND FULLY ORIENTED ON ASSESSMENT. PT PAIN WELL CONTROLLED TONIGHT. PT AMBULATING AND VOIDING APPROPRIATELY. DRESSINGS TO L LEG C/D/I. PT STILL PRODUCING CLEAR JELLY LIKE STOOLS. MENTATION ALSO SEEMS TO BE IMPROVED TO BASELINE. CIRCULATION// SENSATION DISTAL TO SURGICAL SITE INTACT. NO ACUTE EVENTS TONIGHT.
[2024-04-21 05:40] LABS: BASOPHILS ABSOLUTE AUTO 0.04 K/mm3 (0.00-0.23); BASOPHILS PERCENT AUTO 0 % (0-2); EOSINOPHILS ABSOLUTE AUTO 0.21 K/mm3 (0.00-0.68); EOSINOPHILS PERCENT AUTO 2 % (0-6); Hematocrit 27.5 % (33.0-51.0); Hemoglobin 9.2 g/dL (11.5-16.0); IMMATURE GRAN ABSOLUTE AUTO 0.06 K/mm3 (0.00-0.10); IMMATURE GRAN PERCENT AUTO 1 % (0-1); LYMPHOCYTES PERCENT AUTO 18 % (21-46); MONOCYTES ABSOLUTE AUTO 0.85 K/mm3 (0.16-1.47); MONOCYTES PERCENT AUTO 9 % (4-13); Mean Corpuscular HGB 28.8 pg (26.0-34.0); Mean Corpuscular HGB Conc 33.5 g/dL (31.5-36.5); Mean Corpuscular Volume 86 fL (80-100); Mean Platelet Volume 8.8 fL (9.1-12.4); NEUTROPHILS ABSOLUTE AUTO 6.56 K/mm3 (1.96-9.15); NEUTROPHILS PERCENT AUTO 70 % (41-73); Platelet Count 385 K/mm3 (150-400); RDW Standard Deviation 40.6 fL (35.1-46.3); White Blood Cell Count 9.42 K/mm3 (4.00-11.30)
[2024-04-21 06:36] LABS: Albumin, Blood 2.3 g/dL (3.4-5.0); Albumin/Globulin Ratio 0.6 (0.8-1.8); Bilirubin, Total 0.4 mg/dL (0.1-1.0); Bun/Creatinine Ratio 41.7 (12.0-20.0); Calcium, Blood 8.9 mg/dL (8.5-10.1); Creatinine, Blood 0.58 mg/dL (0.40-1.00); Globulin, Blood 4.1 g/dL (2.2-4.0); Potassium, Blood 3.1 mmol/L (3.5-5.5); Total Protein, Blood 6.4 g/dL (6.4-8.2)
[2024-04-21 07:15] VITALS: BP 122/74
[2024-04-21] MEDS ORDERED: Potassium Chloride 20 MEQ/15 ML UDC PO SCH (08:00)
--- NOTE | 2024-04-21 11:49 | NUR ---
ORTHOSTATIC HYPOTENSION DR. PRESSLEY NOTIFIED THAT PT WAS DIZZY WHEN SHE GOT OOB WITH PHYSICAL THERAPY AND THAT HER BP DROPPED TO 80/69 DURING THAT TIME. WAITING FOR ORDERS FROM DR. PRESSLEY AT THIS TIME.
--- NOTE | 2024-04-21 11:50 | NUR ---
DROP FOOT PT CONTINUES TO BE UNABLE TO DORSIFLEX WITH HER LEFT FOOT. PT AND HER EXPRESSED CONCERNS AND ARE REQUESTING TO TALK WITH DR. MCFARLANE. DR. MCFARLANE NOTIFIED OF THEIR REQUEST TO DISCUSS DROP FOOT WITH HER.
[2024-04-21] MEDS ORDERED: NS 1,000 ML IV SCH (12:00)
[2024-04-21 13:51] VITALS: BP 118/66
--- NOTE | 2024-04-21 15:04 | NUR ---
SPOKE WITH DR. MCFARLANE REGARDING FOOT DROP. PER DR. MCFARLANE NO BRACE NEEDED AT THIS TIME. SHE WILL FOLLOW UP WITH PT REGARDING THIS CONCERNS IN 1 MONTH.
[2024-04-21 19:01] VITALS: BP 96/74
--- NOTE | 2024-04-21 19:42 | NUR ---
SHIFT SUMMARY PT IS POD#3 FROM L HIP NAILING WITH DR. MCFARLANE. PAIN MANAGED WITH TYLENOL AND OXYCODONE THIS SHIFT. PT HAS HAD SOME ORTHOSTATIC HYPOTENSION/TACHYCARDIA. PT WAS GIVEN 1L IV FLUID AND PO INTAKE WAS ENCOURAGED. PT HAS BEEN A 1 ASSIST WITH GAIT BELT AND WALKER. BEDSIDE REPORT GIVEN TO RENEE ENRIQUEZ.
[2024-04-21 23:34] VITALS: BP 111/55
[2024-04-22 04:57] VITALS: BP 119/54
--- NOTE | 2024-04-22 04:59 | NUR ---
NOC SUMMARY- PT PAIN HAS BEEN MANAGED WELL. PT HAS BEEN RESTING QUIETLY. PT VOIDING WELL. PT IS ABLE TO REPOSITION SELF IN BED. PT REQUIRED O2 VIA NC @ 2LPM WHILE SLEEPING. PT CURRENTLY RESTING QUIETLY. CALL LIGHT IN REACH. BED ALARM ON.
[2024-04-22 06:32] LABS: BASOPHILS ABSOLUTE AUTO 0.04 K/mm3 (0.00-0.23); BASOPHILS PERCENT AUTO 0 % (0-2); EOSINOPHILS ABSOLUTE AUTO 0.14 K/mm3 (0.00-0.68); EOSINOPHILS PERCENT AUTO 1 % (0-6); Hematocrit 26.7 % (33.0-51.0); Hemoglobin 8.8 g/dL (11.5-16.0); IMMATURE GRAN ABSOLUTE AUTO 0.08 K/mm3 (0.00-0.10); IMMATURE GRAN PERCENT AUTO 1 % (0-1); LYMPHOCYTES ABSOLUTE AUTO 1.86 K/mm3 (0.84-5.20); LYMPHOCYTES PERCENT AUTO 14 % (21-46); MONOCYTES ABSOLUTE AUTO 0.98 K/mm3 (0.16-1.47); MONOCYTES PERCENT AUTO 7 % (4-13); Mean Corpuscular HGB 29.3 pg (26.0-34.0); Mean Corpuscular Volume 89 fL (80-100); Mean Platelet Volume 9.2 fL (9.1-12.4); NEUTROPHILS PERCENT AUTO 77 % (41-73); Platelet Count 364 K/mm3 (150-400); RDW Coefficient Variation 13.2 % (11.7-14.2); RDW Standard Deviation 42.7 fL (35.1-46.3)
[2024-04-22 07:09] LABS: Albumin, Blood 2.2 g/dL (3.4-5.0); Anion Gap 10 mmol/L (3-11); Blood Urea Nitrogen 20 mg/dL (8-24); Bun/Creatinine Ratio 35.5 (12.0-20.0); CO2, Blood 26 mmol/L (21-32); Calcium, Blood 8.9 mg/dL (8.5-10.1); Chloride, Blood 104 mmol/L (98-108); Creatinine, Blood 0.56 mg/dL (0.40-1.00); Glomerular Filtration Rate 96 (60-); Glucose, Blood 101 mg/dL (70-99); Phosphorus, Blood 3.5 mg/dL (2.5-4.9); Potassium, Blood 4.3 mmol/L (3.5-5.5); Sodium, Blood 136 mmol/L (136-145)
[2024-04-22 07:31] VITALS: BP 100/61
[2024-04-22] MEDS ORDERED: Morphine Sulfate 4 MG/1 ML Injection IV ONE (09:10)
[2024-04-22] MEDS ORDERED: Ketorolac Tromethamine 15mg Vial IV PRN (09:35)
[2024-04-22] MEDS ORDERED: OxyCODONE HCL 5 MG TAB PO PRN (09:40)
--- NOTE | 2024-04-22 09:58 | NUR ---
INCREASED PAIN PT REPORTS ELEVTED L HIP PAIN THIS AM. PT CANNOT IDENTIFY ANY FACTORS THAT EXACERBATED THE PAIN. PT IS ABLE TO MOVE HER LEGS, PULSES AND CAP REFIL INTACT. NO DEFORMITY OF LEG NOTED. PO PAIN MEDICATION GIVEN BUT NOT EFFECTIVE. DR. PRESSLEY NOTIFIED OF ELEVATED PAIN AND CAME TO THE BEDSIDE. MORPHINE 2MG IV GIVEN PER DR. PRESSLEY FOR PAIN MANAGEMENT, PAIN IMPROVED AFTER MORPHINE ADMINISTRATION. DR. PRESSLEY MADE OTHER ADJUSTMENTS TO PAIN MEDICATION.
--- NOTE | 2024-04-22 10:01 | NUR ---
DR. VELEZ ROUNDED DR. PRESSLEY ROUNDED ON PT. DISCUSSED BIBASILAR CRACKLES NOTED ON AM ASSESSMENT. PT'S IS IS AT THE BEDSIDE AND PT RE-EDUCATED TO USE 3X Q15 MINUTES.
[2024-04-22 12:13] VITALS: BP 106/77
[2024-04-22] MEDS ORDERED: Acetaminophen 500 MG Tab PO SCH (16:00)
[2024-04-22 16:22] VITALS: BP 102/58
--- NOTE | 2024-04-22 17:31 | NUR ---
SHIFT SUMMARY PT HAD INCREASED PAIN THIS MORNING, PAIN MEDICATION ORDERS ADJUSTED BY DR. PRESSLEY AND PAIN HAS BEEN WELL CONTROLLED TODAY. PT IS A 1 ASSIST WHEN OOB. SHE IS HAVING FREQUENT BOWEL MOVEMENTS. PT IS TOLERATING PO AND HYDRATION ENCOURAGED. PT USES HER CALL LIGHT APPROPRIATELY.
[2024-04-22 19:27] VITALS: BP 109/59
[2024-04-23 00:24] VITALS: BP 122/59
--- NOTE | 2024-04-23 03:30 | NUR ---
SHIFT SUMMARY POD 5 LEFT HIP NAILING. DRESSING TO LEFT HIP INCISIONS CDI, NO SHADOWING NOTED. ABLE TO MAKE NEEDS KNOWN. CLEAR LIQUID JELLY STOOL AT START OF NIGHT WITH MOST RECENT BEING BROWN 2-3 CM ROUND "LORELEI." ATTENDS CHANGED PRN. PT OOB WITH FWW, SBA AND GB 2X. TELE IN PLACE. SINUS TACH WITH EXERTION, NSR 80-90'S WHILE RESTING. PT DENIES CHEST PAIN OR PRESSURE. HEELS FLOATED FOR COMFORT WHILE IN BED. PAIN MANAGED PER EMAR. BOWEL CARE IN PLACE. ENCOURAGED PO FLUID INTAKE. IV SL/PATENT. HAS CALL LIGHT IN REACH. WILL GIVE REPORT TO ONCOMING RN.
[2024-04-23 03:43] VITALS: BP 113/58
[2024-04-23 05:46] LABS: BASOPHILS ABSOLUTE AUTO 0.06 K/mm3 (0.00-0.23); BASOPHILS PERCENT AUTO 0 % (0-2); EOSINOPHILS ABSOLUTE AUTO 0.25 K/mm3 (0.00-0.68); EOSINOPHILS PERCENT AUTO 1 % (0-6); Hematocrit 25.2 % (33.0-51.0); Hemoglobin 8.1 g/dL (11.5-16.0); IMMATURE GRAN ABSOLUTE AUTO 0.12 K/mm3 (0.00-0.10); IMMATURE GRAN PERCENT AUTO 1 % (0-1); LYMPHOCYTES ABSOLUTE AUTO 1.48 K/mm3 (0.84-5.20); LYMPHOCYTES PERCENT AUTO 8 % (21-46); MONOCYTES ABSOLUTE AUTO 1.34 K/mm3 (0.16-1.47); MONOCYTES PERCENT AUTO 8 % (4-13); Mean Corpuscular HGB 28.9 pg (26.0-34.0); Mean Corpuscular HGB Conc 32.1 g/dL (31.5-36.5); Mean Corpuscular Volume 90 fL (80-100); Mean Platelet Volume 8.7 fL (9.1-12.4); NEUTROPHILS ABSOLUTE AUTO 14.58 K/mm3 (1.96-9.15); NEUTROPHILS PERCENT AUTO 82 % (41-73); Platelet Count 325 K/mm3 (150-400); RDW Coefficient Variation 13.2 % (11.7-14.2); RDW Standard Deviation 43.4 fL (35.1-46.3); White Blood Cell Count 17.83 K/mm3 (4.00-11.30)
[2024-04-23 06:30] LABS: Anion Gap 10 mmol/L (3-11); Blood Urea Nitrogen 29 mg/dL (8-24); Bun/Creatinine Ratio 44.2 (12.0-20.0); CO2, Blood 25 mmol/L (21-32); Calcium, Blood 8.7 mg/dL (8.5-10.1); Chloride, Blood 104 mmol/L (98-108); Creatinine, Blood 0.66 mg/dL (0.40-1.00); Glomerular Filtration Rate 92 (60-); Glucose, Blood 119 mg/dL (70-99); Phosphorus, Blood 4.6 mg/dL (2.5-4.9); Potassium, Blood 4.6 mmol/L (3.5-5.5); Sodium, Blood 134 mmol/L (136-145)
[2024-04-23 07:42] VITALS: BP 95/53
--- NOTE | 2024-04-23 17:00 | NUR ---
PT LEFT VIA TRANSPORT TO [facility]. ALL BELONGINGS WITH PATIENT AND SPOUSE. ATTEMPTED TO CALL REPORT AT THIS TIME. DRESSINGS REMAIN CDI. PAIN MANAGED WELL PER EMAR.
== END 2024-04-23 16:07 | DRG 481 ==
LOC: ER 20:41 → SURS 22:42 → ERHOLD 22:42 → SURS 04-17 01:00
PROVIDERS: Family Medicine; Internal Medicine; Nurse Practitioner Acute Care; Orthopaedic Surgery; Student in an Organized Health Care Education/Training Program; ADMIT Internal Medicine
PROC: 0QH736Z Insertion of Intramedullary Internal Fixation Device into Left Upper Femur, Percutaneous Approach (ICD-10-PCS; principal; 2024-04-18 13:00)
DX: S72.142A Displaced intertrochanteric fracture of left femur, initial encounter for closed fracture (principal); C20 Malignant neoplasm of rectum; E87.6 Hypokalemia; S00.83XA Contusion of other part of head, initial encounter
CPT/HCPCS: 36415; 51702; 70450; 72192; 73502; 73590; 73600; 73620; 80053; 80069; 83735; 83880; 84100; 85025; 94762; 96374; 96375; 97110; 97116; 97161; 97165; 97530; 97535; 99285-25; A9270; C1713; G0378; J0690; J1100; J1171; J1885; J2270; J2405; J2704; J3010; J3480; J7030; J7120

== ENCOUNTER 2024-05-27 12:37 | Inpatient (IN) | payer OTHER ==
[~2024-05-27] VITALS: Ht 162.6 cm; Wt 45.5 kg
[2024-05-27] MEDS ORDERED: NS 1,000 ML IV SCH ×2 (13:10→17:15)
[2024-05-27] MEDS ORDERED: Potassium Chl 20MEQ/Water100ML 100 ML IV ONE (13:55)
[2024-05-27 15:36] LABS: Source, Urine Clean Catch
[2024-05-27 15:42] LABS: Appearance, Urine Hazy (Clear); Bilirubin, Urine Neg (Neg); Blood, Urine Neg (Neg); Color, Urine Yellow (P-Yellow); Glucose Qualitative, Urine Neg (Neg); Ketones, Urine Neg (Neg); Leukocyte Esterase, Urine Neg (Neg); Nitrite, Urine Neg (Neg); Protein, Urine Neg (Neg); Urobilinogen, Urine NORM (Normal)
[2024-05-27] MEDS ORDERED: OXYC5 PO (15:42)
[2024-05-27 15:46] LABS: Bun/Creatinine Ratio 48.9 (12.0-20.0); Calcium, Blood 9.7 mg/dL (8.5-10.1); Creatinine, Blood 2.35 mg/dL (0.40-1.00); Potassium, Blood 3.6 mmol/L (3.5-5.5)
[2024-05-27 15:54] LABS: Amorphous Light (0-Heavy)
[2024-05-27 15:57] LABS: Hyaline Casts 0-2 /lpf (0-2)
[2024-05-27 15:58] LABS: Bacteria Few /hpf; Red Blood Cells, Urine 0-2 /hpf (0-2); Squamous Epithelial Cells Not Seen /hpf (Few); White Blood Cells, Urine 0-2 /hpf (0-5)
[2024-05-27] MEDS ORDERED: OxyCODONE HCL 5 MG TAB PO PRN (17:15)
[2024-05-27] MEDS ORDERED: FentaNYL Citrate 50 MCG/ML 2 ML Injection IV PRN (17:15)
[2024-05-27] MEDS ORDERED: NS 1,000 ML IV ONE (17:34)
[2024-05-27 18:05] VITALS: BP 103/67
[2024-05-27] MEDS ORDERED: ONDA4 PO (18:13)
[2024-05-27] MEDS ORDERED: ACET500 PO (18:15)
--- NOTE | 2024-05-27 18:37 | NUR ---
PT ADMIT FROM ED. ALERT AND ORIENTED X4, SPOUSE AT BEDSIDE. PT SPOUSE AND SON ARE MAIN CARE GIVERS. PT INCONT OF URINE AND BOWEL. MULTIPLE EPISODES OF DIARRHEA DAILY, PER PT THIS HAS BEEN PROGRESSIVELY GETTING WORSE OVER THE LAST YEAR. PT REPORTS IRRITATION TO VAGINA AND RECTUM FOR PAST WEEK. PT UNABLE TO GET OUT OF BED FOR ONE WEEK DUE TO WEAKNESS. DENIES N/V AT THIS TIME. DENIES CHEST PAIN, DENIES SOB. IV FLUIDS INFUSING. RIGHT CHEST MEDIPORT ACCESSED BY ER. PER STAFF, DOES NOT DRAW BUT FLUSHES WELL. SKIN INTACT.
[2024-05-27 19:44] VITALS: BP 93/69
[2024-05-27] MEDS ORDERED: Heparin Sodium,Porcine 5,000 UNIT/0.5 ML SDV SC SCH (21:00)
[2024-05-27 22:45] LABS: Bun/Creatinine Ratio 59.6 (12.0-20.0); Calcium, Blood 8.7 mg/dL (8.5-10.1); Creatinine, Blood 1.78 mg/dL (0.40-1.00); Potassium, Blood 3.7 mmol/L (3.5-5.5)
[2024-05-27 23:31] VITALS: BP 97/54
[2024-05-28] VITALS (7 sets, daily range): BP systolic 89–111; BP diastolic 59–82
[2024-05-28 02:22] LABS: BASOPHILS ABSOLUTE AUTO 0.03 K/mm3 (0.00-0.23); BASOPHILS PERCENT AUTO 0 % (0-2); EOSINOPHILS ABSOLUTE AUTO 0.38 K/mm3 (0.00-0.68); EOSINOPHILS PERCENT AUTO 5 % (0-6); Hemoglobin 10.7 g/dL (11.5-16.0); IMMATURE GRAN ABSOLUTE AUTO 0.05 K/mm3 (0.00-0.10); IMMATURE GRAN PERCENT AUTO 1 % (0-1); LYMPHOCYTES ABSOLUTE AUTO 2.55 K/mm3 (0.84-5.20); LYMPHOCYTES PERCENT AUTO 32 % (21-46); MONOCYTES ABSOLUTE AUTO 0.45 K/mm3 (0.16-1.47); MONOCYTES PERCENT AUTO 6 % (4-13); Mean Corpuscular HGB 29.6 pg (26.0-34.0); Mean Corpuscular HGB Conc 34.5 g/dL (31.5-36.5); Mean Corpuscular Volume 86 fL (80-100); Mean Platelet Volume 9.3 fL (9.1-12.4); NEUTROPHILS ABSOLUTE AUTO 4.44 K/mm3 (1.96-9.15); NEUTROPHILS PERCENT AUTO 56 % (41-73); Platelet Count 341 K/mm3 (150-400); RDW Coefficient Variation 13.3 % (11.7-14.2); RDW Standard Deviation 41.8 fL (35.1-46.3); Red Blood Cell Count 3.62 M/mm3 (3.80-5.20)
[2024-05-28 02:28] LABS: Bun/Creatinine Ratio 65.1 (12.0-20.0); Calcium, Blood 8.5 mg/dL (8.5-10.1); Creatinine, Blood 1.49 mg/dL (0.40-1.00); Potassium, Blood 3.3 mmol/L (3.5-5.5)
--- NOTE | 2024-05-28 06:10 | NUR ---
SHIFT SUMMARY PT A&OX4, ABLE TO MAKE NEEDS KNOWN. PT CONTINUES TO FEEL WEAK AND IS BED RIDDEN. SHE HAS BEEN EDUCATED ON IMPORTANCE OF RECURRENT BLOOD DRAWS TO MONITOR HER SODIUM LEVELS SHE HAS BEEN TRYING TO REFUSE BLOOD WORK. PT IS AGREEABLE TO PLAN OF CARE AT THIS TIME. VSS, AFEBRILE, SPO2 >98% ON RA. SHE DENIES CP OR SOB. NO N/V. PAIN MEDICATED PER EMAR. PW IN PLACE. PT IS RESTING IN BED, BREATHING IS EVEN AND UNLABORED, CALL LIGHT IN REACH.
[2024-05-28 06:28] LABS: Bun/Creatinine Ratio 72.9 (12.0-20.0); Creatinine, Blood 1.33 mg/dL (0.40-1.00)
[2024-05-28] MEDS ORDERED: NS 1,000 ML IV SCH (07:50)
[2024-05-28] MEDS ORDERED: Potassium Chloride 20 MEQ TabCR PO SCH (08:00)
[2024-05-28] MEDS ORDERED: Protein Supplement 30 ML UD PO SCH (09:45)
--- NOTE | 2024-05-28 10:07 | NUR ---
TRANSFER NOTE PATUIENT A/OX4, SOFT SPEECH, ABLE TO MAKE NEEDS KNOWN. DIET UPGRADED TO FULL LIQUID AND DR. CARY STATES CAN UPGRADE TOLERATYED. COMPLAINING OF NAUSEA AFTER MORNING MED PASS, DENIES NEED FOR NAUSE MEDICATION AT THIS TIME. SPOUSE, ROCIO, AT BEDSIDE THIS MORNING. IV FLUIDS RESTARTED PER APR, BP 89/59 THIS AM, AWARE. RECHECLED PRIOR TO TRANSFER TO ROOM 332, SBP 100. REPORT GIVEN TO [place]. NO OTHER CONCERNS AT THIS TIME.
[2024-05-28 11:15] LABS: Bun/Creatinine Ratio 69.9 (12.0-20.0); Calcium, Blood 8.5 mg/dL (8.5-10.1); Creatinine, Blood 1.23 mg/dL (0.40-1.00); Potassium, Blood 3.6 mmol/L (3.5-5.5)
--- NOTE | 2024-05-28 16:38 | NUR ---
PT REPORTS FEELING LIKE SHE MAY BE BECOMING CONSTIPATED. PT SPOUSE REPORTS THAT SHE MUST STAY ON SOME KIND OF BOWEL REGIMEN SO THAT SHE CAN PASS STOOL WITH RECTAL MASS. PT CURRENTLY HAVING SMALL SOFT INCONT STOOLS. DR. BALL NOTIFIED. TO ORDER BOWEL CARE MEDICATION
--- NOTE | 2024-05-28 16:48 | NUR ---
PT TRANSFERRED TO MEDICAL FLOOR FROM PCU THIS MORNING. NO ACUTE CHANGES THIS SHIFT. PT HAS BEEN BEDREST FOR 1 WEEK DUE TO SEVERE WEAKNESS. PT/OT EVAL ORDERED. FULL LIQUID DIET. MAY ADVANCE TOLORATED PER ORDER. PT IS INCONT OF URINE AND BOWEL. ATTENDS IN PLACE. BLANCHABLE REDNESS NOTED ON COCCYX, MEPILEX APPLIED. PT CAN REPOSITION SELF BUT WE HAVE SUPPORTED HIPS WITH PILLOWS TOLORATED. IV FLUIDS CONTINUED. PALLIATIVE CONSULT ORDERED. ORIENTED X4, CALLS APPROPRIATELY.
[2024-05-28 17:15] LABS: Bun/Creatinine Ratio 71.2 (12.0-20.0); Creatinine, Blood 1.04 mg/dL (0.40-1.00); Potassium, Blood 4.3 mmol/L (3.5-5.5)
[2024-05-28 20:53] LABS: Bun/Creatinine Ratio 70.9 (12.0-20.0); Calcium, Blood 8.4 mg/dL (8.5-10.1); Creatinine, Blood 0.92 mg/dL (0.40-1.00)
[2024-05-29 00:21] LABS: Calcium, Blood 8.6 mg/dL (8.5-10.1); Creatinine, Blood 0.92 mg/dL (0.40-1.00); Potassium, Blood 3.9 mmol/L (3.5-5.5)
[2024-05-29 03:27] VITALS: BP 102/62
--- NOTE | 2024-05-29 04:58 | NUR ---
SHIFT SUMMARY: Pt is admitted for hyponatremia and is a full code. Is alert and able to make needs known. ADLs have been 1-2 depending on activity but did not get out of bed. Pain has been managed with PRN medications. Port to right chest is accessed and running NS at 100ml/h.
[2024-05-29 05:40] LABS: BASOPHILS ABSOLUTE AUTO 0.02 K/mm3 (0.00-0.23); BASOPHILS PERCENT AUTO 0 % (0-2); EOSINOPHILS ABSOLUTE AUTO 0.28 K/mm3 (0.00-0.68); EOSINOPHILS PERCENT AUTO 2 % (0-6); Hematocrit 26.6 % (33.0-51.0); Hemoglobin 8.9 g/dL (11.5-16.0); IMMATURE GRAN ABSOLUTE AUTO 0.09 K/mm3 (0.00-0.10); IMMATURE GRAN PERCENT AUTO 1 % (0-1); LYMPHOCYTES ABSOLUTE AUTO 1.91 K/mm3 (0.84-5.20); LYMPHOCYTES PERCENT AUTO 16 % (21-46); MONOCYTES ABSOLUTE AUTO 0.84 K/mm3 (0.16-1.47); MONOCYTES PERCENT AUTO 7 % (4-13); Mean Corpuscular HGB 29.3 pg (26.0-34.0); Mean Corpuscular HGB Conc 33.5 g/dL (31.5-36.5); Mean Corpuscular Volume 88 fL (80-100); Mean Platelet Volume 9.7 fL (9.1-12.4); NEUTROPHILS ABSOLUTE AUTO 8.74 K/mm3 (1.96-9.15); NEUTROPHILS PERCENT AUTO 73 % (41-73); Platelet Count 284 K/mm3 (150-400); RDW Coefficient Variation 13.6 % (11.7-14.2); RDW Standard Deviation 43.1 fL (35.1-46.3); Red Blood Cell Count 3.04 M/mm3 (3.80-5.20); White Blood Cell Count 11.88 K/mm3 (4.00-11.30)
[2024-05-29 06:06] LABS: Calcium, Blood 8.6 mg/dL (8.5-10.1); Creatinine, Blood 0.79 mg/dL (0.40-1.00); Potassium, Blood 3.6 mmol/L (3.5-5.5)
[2024-05-29 07:20] VITALS: BP 96/58
[2024-05-29 08:40] LABS: Calcium, Blood 8.5 mg/dL (8.5-10.1); Creatinine, Blood 0.82 mg/dL (0.40-1.00); Potassium, Blood 3.7 mmol/L (3.5-5.5)
[2024-05-29] MEDS ORDERED: Promod946 ML PO (11:54)
[2024-05-29] MEDS ORDERED: MIRT15 PO (11:54)
--- NOTE | 2024-05-29 12:17 | NUR ---
PT DECLINED REPEAT LAB DRAW DUE TO DISCHARGE ORDERED. PT STATES SHE WILL BE GETTING LABS ON SUNDAY WITH PCP/ONCOLOGY
--- NOTE | 2024-05-29 15:56 | NUR ---
PT DISCHARGED THE PT AND HER VERBALIZED UNDERSTANDING OF THE DC INSTRUCTIONS, PERSCRIPTION WAS FAXED TO [facility]. THE PT WAS TRANSFERED VIA WHEELCHAIR ACCOMPANIED BY THE TECHNICAL SUPPORT PROFESSIONAL TO THE FRONT. BELONGINGS WERE RELEASED TO THE PTS
[2024-05-29] MEDS ORDERED: Docusate Sodium 100 MG Cap PO SCH (21:00)
== END 2024-05-29 13:41 | disposition home or self-care (01) | DRG 683 ==
LOC: ER 12:37 → PCU 16:23 → ERHOLD 16:23 → PCU 16:56 → MEDS 05-28 09:57
PROVIDERS: Emergency Medicine; Physician Assistant; ADMIT Internal Medicine
DX: N17.9 Acute kidney failure, unspecified (principal); C20 Malignant neoplasm of rectum; E87.1 Hypo-osmolality and hyponatremia; E87.6 Hypokalemia; R94.31 Abnormal electrocardiogram [ECG] [EKG]; E83.42 Hypomagnesemia; N18.9 Chronic kidney disease, unspecified; Z98.890 Other specified postprocedural states; Z91.011 Allergy to milk products; Z91.018 Allergy to other foods; Z79.891 Long term (current) use of opiate analgesic; Z74.01 Bed confinement status; Z87.81 Personal history of (healed) traumatic fracture
CPT/HCPCS: 36415; 80048; 80053; 81001; 82330; 82378; 83735; 85025; 93005; 93010; 96365; 96366; 97110; 97116; 97162; 99284-25; A9270; J1642; J1644; J3480; J7030; P9612

== ENCOUNTER 2024-06-04 11:54 | Emergency (ER) | payer OTHER ==
[~2024-06-04] VITALS: Ht 172.7 cm; Wt 54.4 kg
[~2024-06-04 11:54] MED LIST changes: +ACET500 PO; +MIRT15 PO; +ONDA4 PO; +OXYC5 PO; +Promod946 ML PO
[2024-06-04] MEDS ORDERED: NS 1,000 ML IV SCH ×2 (12:15)
[2024-06-04 12:27] LABS: BASOPHILS ABSOLUTE AUTO 0.04 K/mm3 (0.00-0.23); BASOPHILS PERCENT AUTO 0 % (0-2); EOSINOPHILS ABSOLUTE AUTO 0.03 K/mm3 (0.00-0.68); EOSINOPHILS PERCENT AUTO 0 % (0-6); Hematocrit 32.4 % (33.0-51.0); Hemoglobin 11.2 g/dL (11.5-16.0); IMMATURE GRAN ABSOLUTE AUTO 0.06 K/mm3 (0.00-0.10); IMMATURE GRAN PERCENT AUTO 1 % (0-1); LYMPHOCYTES ABSOLUTE AUTO 1.75 K/mm3 (0.84-5.20); LYMPHOCYTES PERCENT AUTO 18 % (21-46); MONOCYTES ABSOLUTE AUTO 1.32 K/mm3 (0.16-1.47); MONOCYTES PERCENT AUTO 14 % (4-13); Mean Corpuscular HGB 29.4 pg (26.0-34.0); Mean Corpuscular HGB Conc 34.6 g/dL (31.5-36.5); Mean Corpuscular Volume 85 fL (80-100); Mean Platelet Volume 9.4 fL (9.1-12.4); NEUTROPHILS ABSOLUTE AUTO 6.41 K/mm3 (1.96-9.15); NEUTROPHILS PERCENT AUTO 67 % (41-73); Platelet Count 424 K/mm3 (150-400); RDW Coefficient Variation 13.9 % (11.7-14.2); RDW Standard Deviation 42.4 fL (35.1-46.3); Red Blood Cell Count 3.81 M/mm3 (3.80-5.20); White Blood Cell Count 9.61 K/mm3 (4.00-11.30)
[2024-06-04 12:54] LABS: Albumin, Blood 3.3 g/dL (3.4-5.0); Albumin/Globulin Ratio 0.6 (0.8-1.8); Bilirubin, Total 0.6 mg/dL (0.1-1.0); Bun/Creatinine Ratio 32.2 (12.0-20.0); Calcium, Blood 9.5 mg/dL (8.5-10.1); Creatinine, Blood 3.32 mg/dL (0.40-1.00); Globulin, Blood 5.5 g/dL (2.2-4.0); Potassium, Blood 2.9 mmol/L (3.5-5.5); Total Protein, Blood 8.8 g/dL (6.4-8.2)
[2024-06-04] MEDS ORDERED: Potassium Chloride 20 MEQ TabCR PO ONE (13:05)
[2024-06-04 15:53] VITALS: BP 94/66
[2024-06-05] MEDS ORDERED: EUTHYROX50 MCG PO (14:17)
== END 2024-06-04 17:20 | disposition home or self-care (01) ==
LOC: ER 11:54
PROVIDERS: Emergency Medicine
DX: N17.9 Acute kidney failure, unspecified (principal); E87.1 Hypo-osmolality and hyponatremia; I95.9 Hypotension, unspecified; E87.6 Hypokalemia; C20 Malignant neoplasm of rectum; Z79.899 Other long term (current) drug therapy
CPT/HCPCS: 36415; 80053; 84100; 85025; 93005; 93010; 96360; 99283-25; A9270; J1642; J7030

== ENCOUNTER 2024-06-05 13:29 | Inpatient (IN) | payer OTHER ==
[~2024-06-05] VITALS: Ht 162.6 cm; Wt 46.4 kg
[2024-06-05] MEDS ORDERED: EUTHYROX50 MCG PO (14:17)
[2024-06-05] MEDS ORDERED: NS 1,000 ML IV ONE (14:35)
[2024-06-05 14:43] VITALS: BP 83/56
--- NOTE | 2024-06-05 15:46 | NUR ---
ADMISSION NOTE PATIENT ADMITTED THIS AFTERNOON AT 1405, DIRECT ADMIT FROM [place]. PATIENT A/OX4, ABLE TOMAKE NEEDS KNOWN. PLEASANT AND COOPERATIVE WITH CARE.SPOUSE, ROCIO, AT BEDSIDE.PATIENT ADMITTED WITH ARF. TELEMETRY IN PLACE, NO EVENTS NOTED. MED REC COMPLETED. VITAL SIGNS OBTAINED UPON ADMISSION,PATIENT WITH HYPOTENSION SBP 80s. DR. MARTINEZ NOTIFIED AND ORDERS OBTAINED TO ACCESS MEDIPORT AND ADMINISTER NS BOLUS. WILL CONTINUE TO MONITOR.
[2024-06-05 16:47] VITALS: BP 96/55
[2024-06-05] MEDS ORDERED: NS 1,000 ML IV SCH (16:55)
[2024-06-05] MEDS ORDERED: Acetaminophen 500 MG Tab PO PRN (16:55)
[2024-06-05] MEDS ORDERED: Loperamide HCl 2 MG Cap PO PRN (16:55)
[2024-06-05] MEDS ORDERED: Midodrine 5 MG Tab PO SCH (17:00)
--- NOTE | 2024-06-05 19:14 | NUR ---
SHIFT SUMMARY PATIENT A/OX4, ABLE TO MAKE NEEDS KNOWN. PLEASANT AND COOPERATIVE WITH CARE. IV BOLUS ADMINISTERED PER APR, MEDIPORT ACCESSED PER DR. MARTINEZ. DOES NOT DRAW, PATIENT STATES IT HAS NOT BEEN ABLE TO DRAW BLOOD RECENTLY. NEPHROLOGY AND ONCOLOGY CONSULTED. RENAL ULTRASOUND OBTAINED TODAY. NO OTHER CONCERNS AT THIS TIME. BEDSIDE SHIFT REPORT GIVEN TO UNDERGROUND CONDUIT INSTALLER RN.
[2024-06-05 20:22] VITALS: BP 103/63
[2024-06-05] MEDS ORDERED: Heparin Sodium,Porcine 5,000 UNIT/0.5 ML SDV SC SCH (21:00)
[2024-06-05] MEDS ORDERED: Banana Flakes/Tos 1 EA Powder Pack PO SCH (21:00)
[2024-06-05] MEDS ORDERED: Ondansetron HCl 2 MG / ML 2ML Vial IV PRN (21:15)
[2024-06-05] MEDS ORDERED: OxyCODONE HCL 5 MG TAB PO PRN (21:15)
[2024-06-06] VITALS (8 sets, daily range): BP systolic 88–101; BP diastolic 45–59
--- NOTE | 2024-06-06 04:33 | NUR ---
SHIFT SUMMARY 344 PT A&Ox4 AND PLEASANT. AT BEDSIDE AT START OF SHIFT. NO C/O PAIN. REFUSED NIGHT TIME HEPARIN, ENCOURAGED PT TO MOVE EXTREMITIES WHILE LYING IN BED. NS INFUSING @ 100ml/hr. MEDIPORT ACCESSED. NO EVENTS ON TELE, PT SR IN THE 80's. VSS BUT BP IS SOFT AT 92/54 WITH A MAP OF 66. PT INCONTINENT AND PASSING CLEAR, JELLY LIKE STOOL. CHANGED PRN. CALLS APPROPRIATLY. BED IN LOWEST POSITION AND CALL LIGHT IN REACH.
[2024-06-06 05:25] LABS: BASOPHILS ABSOLUTE AUTO 0.03 K/mm3 (0.00-0.23); BASOPHILS PERCENT AUTO 1 % (0-2); EOSINOPHILS ABSOLUTE AUTO 0.08 K/mm3 (0.00-0.68); EOSINOPHILS PERCENT AUTO 1 % (0-6); Hematocrit 22.6 % (33.0-51.0); Hemoglobin 7.5 g/dL (11.5-16.0); IMMATURE GRAN ABSOLUTE AUTO 0.01 K/mm3 (0.00-0.10); IMMATURE GRAN PERCENT AUTO 0 % (0-1); LYMPHOCYTES ABSOLUTE AUTO 1.52 K/mm3 (0.84-5.20); LYMPHOCYTES PERCENT AUTO 27 % (21-46); MONOCYTES ABSOLUTE AUTO 0.84 K/mm3 (0.16-1.47); MONOCYTES PERCENT AUTO 15 % (4-13); Mean Corpuscular HGB 28.8 pg (26.0-34.0); Mean Corpuscular HGB Conc 33.2 g/dL (31.5-36.5); Mean Corpuscular Volume 87 fL (80-100); Mean Platelet Volume 8.8 fL (9.1-12.4); NEUTROPHILS ABSOLUTE AUTO 3.19 K/mm3 (1.96-9.15); NEUTROPHILS PERCENT AUTO 56 % (41-73); Platelet Count 301 K/mm3 (150-400); RDW Coefficient Variation 13.8 % (11.7-14.2); RDW Standard Deviation 42.6 fL (35.1-46.3); White Blood Cell Count 5.67 K/mm3 (4.00-11.30)
[2024-06-06] MEDS ORDERED: Levothyroxine Sodium 0.05 MG Tab PO SCH (06:00)
[2024-06-06 06:12] LABS: Bun/Creatinine Ratio 49.2 (12.0-20.0); Calcium, Blood 8.2 mg/dL (8.5-10.1); Creatinine, Blood 1.3 mg/dL (0.40-1.00)
[2024-06-06] MEDS ORDERED: Potassium Chloride 20 MEQ/15 ML UDC PO ONE (09:00)
[2024-06-06] MEDS ORDERED: Midodrine 5 MG Tab PO SCH ×2 (09:00→13:00)
[2024-06-06] MEDS ORDERED: Midodrine 5 MG Tab PO ONE (09:10)
[2024-06-06 10:47] LABS: Percent Saturation 10.7 % (15.0-50.0)
--- NOTE | 2024-06-06 16:31 | NUR ---
SHIFT SUMMARY: PATIENT A&OX4/1 PERSON ASSIST; APPEARS TO PRESENT WITH SOME CONFUSION AT TIMES, BUT HARD TO TELL IF IT IS JUST PERSONALITY. SHE IS MORE LETHARGIC THIS AFTERNOON; RESTING AT THIS TIME. BLOOD PRESSURE SLIGHTLY IMPROVED SINCE INCREASING MIDODRINE. PATIENT STATES SHE DIDN'T SLEEP WELL LAST NIGHT. SHE WISHES TO GO HOME, PATIENT CONTINUES TO GET NS AT 100ML/HR, MONITORING BLOOD PRESSURE, ECHO COMPLETED. SHE IS IN BED, RESTING; RESPIRATIONS EVEN AND UNLABORED, CALL LIGHT WITHIN REACH, BED ALARM ON, NO SIGNS OR SYMPTOMS OF DISTRESS, PLAN OF CARE ONGOING.
[2024-06-06] MEDS ORDERED: NS 1,000 ML IV SCH (17:55)
[2024-06-06] MEDS ORDERED: NS KCl 20mEq 1,000 ML IV SCH (18:00)
[2024-06-06] MEDS ORDERED: Sod Ferric Gluc Complx/Sucrose 125 MG in NS 100 ML IV SCH (18:30)
[2024-06-06] MEDS ORDERED: MIRT15 PO (18:33)
--- NOTE | 2024-06-07 04:12 | NUR ---
PATIENT MET SLEEPING DURING SHIFT HANDOVER , WEAK, CONFUSED ,X 2 ORIENTED, SHE IS FULL CODE,ONE PERSON ASSIST, SOILED BREIF CHANGED, PASSED SLIMMY MUCOID STOOL WITH FOUL ODOUR. RECIVED DUE NURSING CARE, ALL HER DUE MEDICATION WERE SEVERED.CALL LIGHT WITHIN REACH.
[2024-06-07 04:53] VITALS: BP 118/62
[2024-06-07 07:08] VITALS: BP 97/52
[2024-06-07 08:59] LABS: BASOPHILS ABSOLUTE AUTO 0.03 K/mm3 (0.00-0.23); BASOPHILS PERCENT AUTO 0 % (0-2); EOSINOPHILS ABSOLUTE AUTO 0.08 K/mm3 (0.00-0.68); EOSINOPHILS PERCENT AUTO 1 % (0-6); Hematocrit 25.7 % (33.0-51.0); Hemoglobin 8.1 g/dL (11.5-16.0); IMMATURE GRAN ABSOLUTE AUTO 0.04 K/mm3 (0.00-0.10); IMMATURE GRAN PERCENT AUTO 1 % (0-1); LYMPHOCYTES ABSOLUTE AUTO 1.59 K/mm3 (0.84-5.20); LYMPHOCYTES PERCENT AUTO 21 % (21-46); MONOCYTES ABSOLUTE AUTO 0.75 K/mm3 (0.16-1.47); MONOCYTES PERCENT AUTO 10 % (4-13); Mean Corpuscular HGB 29.5 pg (26.0-34.0); Mean Corpuscular HGB Conc 31.5 g/dL (31.5-36.5); Mean Platelet Volume 8.9 fL (9.1-12.4); NEUTROPHILS ABSOLUTE AUTO 5.15 K/mm3 (1.96-9.15); NEUTROPHILS PERCENT AUTO 68 % (41-73); Platelet Count 335 K/mm3 (150-400); RDW Coefficient Variation 14.2 % (11.7-14.2); RDW Standard Deviation 47.3 fL (35.1-46.3); Red Blood Cell Count 2.75 M/mm3 (3.80-5.20); White Blood Cell Count 7.64 K/mm3 (4.00-11.30)
[2024-06-07 09:19] LABS: Uric Acid, Blood 5.5 mg/dL (2.6-6.0)
[2024-06-07 09:20] LABS: Albumin, Blood 2.4 g/dL (3.4-5.0); Anion Gap 10 mmol/L (3-11); Blood Urea Nitrogen 29 mg/dL (8-24); Bun/Creatinine Ratio 34.6 (12.0-20.0); CO2, Blood 15 mmol/L (21-32); Calcium, Blood 8.6 mg/dL (8.5-10.1); Chloride, Blood 114 mmol/L (98-108); Creatinine, Blood 0.84 mg/dL (0.40-1.00); Glomerular Filtration Rate 73 (60-); Glucose, Blood 100 mg/dL (70-99); Potassium, Blood 3.3 mmol/L (3.5-5.5); Sodium, Blood 136 mmol/L (136-145)
[2024-06-07 09:30] LABS: Mean Corpuscular Volume 94 fL (80-100)
[2024-06-07] MEDS ORDERED: Potassium Phos/Sodium Phos 250 MG PACK PO ONE (09:40)
[2024-06-07] MEDS ORDERED: Potassium Chloride 20 MEQ TabCR PO ONE (09:40)
[2024-06-07] MEDS ORDERED: MIDODRINE HCL10 M3 PO (10:44)
[2024-06-07] MEDS ORDERED: LOPE2C PO (10:44)
[2024-06-07] MEDS ORDERED: PHOS-NAK PO (10:46)
--- NOTE | 2024-06-07 11:32 | NUR ---
ASSUMED CARE OF PT. NOTIFIED DC ORDERS WRITTEN AND IMPLEMENTED. MEDIPORT IV REMOVED. PT TAKEN DOWN VIA WHEELCHAIR.
== END 2024-06-07 11:33 | disposition home or self-care (01) | DRG 682 ==
LOC: MEDS 13:29
PROVIDERS: Family Medicine; Hospitalist; ADMIT Hospitalist
DX: N17.9 Acute kidney failure, unspecified (principal); E43 Unspecified severe protein-calorie malnutrition; C20 Malignant neoplasm of rectum; E87.1 Hypo-osmolality and hyponatremia; E87.20 Acidosis, unspecified; Z68.1 Body mass index [BMI] 19.9 or less, adult; K52.9 Noninfective gastroenteritis and colitis, unspecified; E87.6 Hypokalemia; E83.39 Other disorders of phosphorus metabolism; D63.0 Anemia in neoplastic disease; I95.9 Hypotension, unspecified; M81.0 Age-related osteoporosis without current pathological fracture; Z87.81 Personal history of (healed) traumatic fracture; Z87.19 Personal history of other diseases of the digestive system; Z79.899 Other long term (current) drug therapy; Z79.890 Hormone replacement therapy; Z98.890 Other specified postprocedural states; Z91.018 Allergy to other foods
CPT/HCPCS: 36415; 76770; 80048; 80053; 80069; 82533; 82570; 82607; 82728; 82746; 83540; 83550; 83935; 84100; 84300; 84550; 84560; 85025; 93005; 93010; 93306; 93356; 96360; 96374; 99283-25; A9270; G0378; J1642; J2916; J3480; J7030

== ENCOUNTER 2024-06-13 03:51 | Day surgery (SDC) | payer OTHER ==
[2024-06-13] MEDS ORDERED: NS 250 ML IV SCH (06:55)
[2024-06-13 14:15] VITALS: BP 97/58
[2024-06-13 14:42] VITALS: BP 103/51
[2024-06-13 15:44] VITALS: BP 111/57
[2024-06-13 16:23] VITALS: BP 102/51
== END 2024-06-13 16:35 | disposition home or self-care (01) ==
LOC: ATC 03:51
DX: C20 Malignant neoplasm of rectum (principal); D63.0 Anemia in neoplastic disease
CPT/HCPCS: 36415; 36430; 86850; 86900; 86901; 86923; J1642; J7050; P9016

== ENCOUNTER → 2024-06-13 | Outpatient (CLI) | payer OTHER ==
[~2024-06-13] MED LIST changes: +EUTHYROX50 MCG PO; +LOPE2C PO; +MIDODRINE HCL10 M3 PO; +PHOS-NAK PO
== END ==
LOC: LAB SHORT 12:00 → LAB 12:00
DX: R10.9 Unspecified abdominal pain (principal)
CPT/HCPCS: 87077; 87086; 87186

== ENCOUNTER 2024-06-26 09:44 | Inpatient (IN) | payer OTHER ==
[~2024-06-26] VITALS: Ht 162.6 cm; Wt 45.3 kg
[2024-06-28 07:24] VITALS: BP 98/57
== END 2024-06-28 11:20 | disposition home or self-care (01) | DRG 683 ==
LOC: ER 09:44 → MEDS 09:45
PROVIDERS: ADMIT Internal Medicine
DX: N17.9 Acute kidney failure, unspecified (principal); C19 Malignant neoplasm of rectosigmoid junction; N39.0 Urinary tract infection, site not specified; E87.1 Hypo-osmolality and hyponatremia; E83.41 Hypermagnesemia; B96.20 Unspecified Escherichia coli [E. coli] as the cause of diseases classified elsewhere; Z96.642 Presence of left artificial hip joint; D72.829 Elevated white blood cell count, unspecified; N18.9 Chronic kidney disease, unspecified; Z91.018 Allergy to other foods; Z79.890 Hormone replacement therapy; Z79.899 Other long term (current) drug therapy; Z79.891 Long term (current) use of opiate analgesic; Z87.19 Personal history of other diseases of the digestive system; Z87.81 Personal history of (healed) traumatic fracture; Z98.890 Other specified postprocedural states

== ENCOUNTER → 2024-07-06 | Outpatient (CLI) | payer OTHER ==
[~2024-07-06] MED LIST changes: +CEFP200 PO; +MIDO5 PO
[2024-07-06 16:16] LABS: Bacteria Many /hpf; Squamous Epithelial Cells Few /hpf (Few); White Blood Cells, Urine 50-100 /hpf (0-5)
[2024-07-06 16:17] LABS: Granular Casts 0-2 /lpf (0)
== END | disposition home or self-care (01) ==
LOC: LAB SHORT 15:50 → LAB 15:50
PROVIDERS: Physician Assistant Medical
DX: N39.0 Urinary tract infection, site not specified (principal); R53.83 Other fatigue; R50.9 Fever, unspecified
CPT/HCPCS: 81015; 87086

== ENCOUNTER → 2024-07-06 | Outpatient (CLI) | payer OTHER ==
[2024-07-06 15:17] LABS: BASOPHILS ABSOLUTE AUTO 0.03 K/mm3 (0.00-0.23); BASOPHILS PERCENT AUTO 0 % (0-2); EOSINOPHILS ABSOLUTE AUTO 0.09 K/mm3 (0.00-0.68); EOSINOPHILS PERCENT AUTO 1 % (0-6); Hematocrit 26.7 % (33.0-51.0); Hemoglobin 8.4 g/dL (11.5-16.0); IMMATURE GRAN ABSOLUTE AUTO 0.05 K/mm3 (0.00-0.10); IMMATURE GRAN PERCENT AUTO 1 % (0-1); LYMPHOCYTES ABSOLUTE AUTO 1.72 K/mm3 (0.84-5.20); LYMPHOCYTES PERCENT AUTO 18 % (21-46); MONOCYTES ABSOLUTE AUTO 0.88 K/mm3 (0.16-1.47); MONOCYTES PERCENT AUTO 9 % (4-13); Mean Corpuscular HGB Conc 31.5 g/dL (31.5-36.5); Mean Corpuscular Volume 92 fL (80-100); Mean Platelet Volume 8.6 fL (9.1-12.4); NEUTROPHILS ABSOLUTE AUTO 6.97 K/mm3 (1.96-9.15); NEUTROPHILS PERCENT AUTO 72 % (41-73); Platelet Count 434 K/mm3 (150-400); RDW Coefficient Variation 13.3 % (11.7-14.2); RDW Standard Deviation 43.8 fL (35.1-46.3); White Blood Cell Count 9.74 K/mm3 (4.00-11.30)
[2024-07-06 15:27] LABS: Albumin, Blood 2.4 g/dL (3.4-5.0); Albumin/Globulin Ratio 0.5 (0.8-1.8); Bilirubin, Total 0.2 mg/dL (0.1-1.0); Bun/Creatinine Ratio 33.7 (12.0-20.0); Creatinine, Blood 0.89 mg/dL (0.40-1.00); Globulin, Blood 4.5 g/dL (2.2-4.0); Potassium, Blood 3.9 mmol/L (3.5-5.5); Total Protein, Blood 6.9 g/dL (6.4-8.2)
== END | disposition home or self-care (01) ==
LOC: LAB 15:13 → LAB SHORT 15:13
PROVIDERS: Physician Assistant Medical
DX: R53.83 Other fatigue (principal)
CPT/HCPCS: 80053; 85025

== ENCOUNTER 2024-07-13 09:17 | Emergency (ER) | payer OTHER ==
[~2024-07-13] VITALS: Ht 162.6 cm; Wt 45.8 kg
[2024-07-13] MEDS ORDERED: NS 1,000 ML IV SCH ×2 (10:00→11:40)
[2024-07-13 10:17] LABS: BASOPHILS ABSOLUTE AUTO 0.03 K/mm3 (0.00-0.23); BASOPHILS PERCENT AUTO 0 % (0-2); EOSINOPHILS ABSOLUTE AUTO 0.05 K/mm3 (0.00-0.68); EOSINOPHILS PERCENT AUTO 0 % (0-6); Hematocrit 27.1 % (33.0-51.0); Hemoglobin 9.1 g/dL (11.5-16.0); IMMATURE GRAN ABSOLUTE AUTO 0.06 K/mm3 (0.00-0.10); IMMATURE GRAN PERCENT AUTO 1 % (0-1); LYMPHOCYTES ABSOLUTE AUTO 1.87 K/mm3 (0.84-5.20); LYMPHOCYTES PERCENT AUTO 15 % (21-46); MONOCYTES ABSOLUTE AUTO 1.21 K/mm3 (0.16-1.47); MONOCYTES PERCENT AUTO 10 % (4-13); Mean Corpuscular HGB 29.2 pg (26.0-34.0); Mean Corpuscular HGB Conc 33.6 g/dL (31.5-36.5); Mean Corpuscular Volume 87 fL (80-100); Mean Platelet Volume 8.6 fL (9.1-12.4); NEUTROPHILS ABSOLUTE AUTO 9.42 K/mm3 (1.96-9.15); NEUTROPHILS PERCENT AUTO 75 % (41-73); Platelet Count 572 K/mm3 (150-400); RDW Coefficient Variation 13.9 % (11.7-14.2); RDW Standard Deviation 43.4 fL (35.1-46.3); Red Blood Cell Count 3.12 M/mm3 (3.80-5.20); White Blood Cell Count 12.64 K/mm3 (4.00-11.30)
[2024-07-13 10:45] LABS: Albumin, Blood 2.6 g/dL (3.4-5.0); Albumin/Globulin Ratio 0.5 (0.8-1.8); Bilirubin, Total 0.5 mg/dL (0.1-1.0); Bun/Creatinine Ratio 37.2 (12.0-20.0); Calcium, Blood 9.2 mg/dL (8.5-10.1); Creatinine, Blood 0.94 mg/dL (0.40-1.00); Globulin, Blood 5.1 g/dL (2.2-4.0); Magnesium, Blood 3.1 mg/dL (1.6-2.4); Phosphorus, Blood 3.6 mg/dL (2.5-4.9); Potassium, Blood 2.8 mmol/L (3.5-5.5); Total Protein, Blood 7.7 g/dL (6.4-8.2)
[2024-07-13] MEDS ORDERED: Potassium Chloride 60 MEQ IV ONE (10:55)
[2024-07-13] MEDS ORDERED: Potassium Chl 20MEQ/Water100ML 100 ML IV SCH (10:55)
[2024-07-13] MEDS ORDERED: Potassium Chloride 20 MEQ/15 ML UDC PO ONE (10:55)
[2024-07-13 19:03] VITALS: BP 123/58
[2024-07-19] MEDS ORDERED: MULVITA PO (11:48)
[2024-07-19] MEDS ORDERED: CIPR500 PO (11:50)
== END 2024-07-13 19:06 | disposition home or self-care (01) ==
LOC: ER 09:17
PROVIDERS: Student in an Organized Health Care Education/Training Program
DX: E87.6 Hypokalemia (principal); E87.1 Hypo-osmolality and hyponatremia; E86.0 Dehydration; D64.9 Anemia, unspecified; Z85.038 Personal history of other malignant neoplasm of large intestine; Z79.899 Other long term (current) drug therapy; Z91.018 Allergy to other foods
CPT/HCPCS: 80053; 83735; 84100; 85025; 86850; 86900; 86901; 96361; 96365; 96366; 99284-25; A9270; J3480; J7030